=== PATIENT | female | born 1945 | race Caucasian/White ===

== ENCOUNTER → 2017-01-08 | Outpatient (CLI) | payer MEDICARE, OTHER ==
[~2017-01-08] MED LIST: ACCUPRIL20 MG PO; ACCUPRIL5 MG PO; ASPIR-LOW81 MG PO; ATORVASTATIN CA40 MG PO; BIOTIN1000 MICRO PO; CELEXA20 MG PO; CELEXA40 MG PO; COMBIGAN O20 DROP/5 BOTH EYES; HYDROCHLOROTH12.5 M1 PO; HYDROCHLOROTH12.5 M3 PO; LATANOPROST2.5 ML LEFT EYE; LEXAPRO20 MG PO; NIFEDICAL XL30 MG PO; PERCOCET 5/31 TABLET PO; POTASSIUM-9999 MG PO; PREDNISONE50 MG PO; PROAIR HFA8.5 GM IH; SIMVASTATIN80 M1 PO; SUPER CALCIUM600 MG PO; TIZANIDINE HCL4 M1 PO; VITAMIN E400 UNIT PO; XALATAN2.5 ML BOTH EYES; XANAX0.5 MG PO; ZITHROMAX Z-PA250 MG PO
== END | disposition home or self-care (01) ==
LOC: CDC 13:57
DX: Z95.0 Presence of cardiac pacemaker (principal); R00.8 Other abnormalities of heart beat; R94.31 Abnormal electrocardiogram [ECG] [EKG]; H25.12 Age-related nuclear cataract, left eye
CPT/HCPCS: 93000

== ENCOUNTER 2017-11-04 08:44 | Inpatient (IN) | payer OTHER ==
[~2017-11-04] VITALS: Ht 160 cm; Wt 68.0 kg
[~2017-11-04 08:44] MED LIST changes: +B-COMPLEX-VITA1 EACH PO; +PROCARDIA XL30 MG PO; +TYLENOL EXTRA500 MG PO
[2017-12-09 06:20] VITALS: BP 158/70
[2017-12-09 12:44] VITALS: BP 135/63
[2017-12-09 15:50] VITALS: BP 127/61
[2017-12-09 20:22] VITALS: BP 160/70
[2017-12-10] VITALS: BP 140/66
[2017-12-10 03:54] VITALS: BP 135/60
[2017-12-10 05:59] LABS: BASOPHIL (%) 0.1 % (0-1); EOSINOPHIL (%) 0 % (0-5); HEMATOCRIT 31.5 % (36.0-46.0); HEMOGLOBIN 10.3 G/DL (11.9-15.5); IMMATURE GRANULOCYTE (%) 0.4 % (0.0-0.7); LYMPHOCYTE (%) 9.1 % (15-42); LYMPHOCYTE COUNT 1.3 K/uL (1.0-2.8); MCH 32.8 PG (29.0-34.0); MCHC 32.7 G/DL (30.0-36.0); MCV 100.3 FL (83-99); MONOCYTE (%) 10.6 % (3-12); MONOCYTE COUNT 1.5 K/uL (0-0.8); NEUTROPHIL (%) 79.8 % (45-76); NEUTROPHIL COUNT 11.3 K/uL (1.8-6.4); PLATELET COUNT 189 K/uL (156-360); RBC DIS.WIDTH-SD 46.7 % (39-53); RED BLOOD COUNT 3.14 M/uL (3.80-5.20); WHITE BLOOD COUNT 14.1 K/uL (4.1-10.2)
[2017-12-10 06:23] LABS: CHLORIDE 97 MEQ/L (99-109); CREATININE 0.9 MG/DL (0.6-1.3); GFR ESTIMATE (CALCULATED) > 59 mL/min/; GLUCOSE 96 mg/dL (70-99); POTASSIUM 5.2 MEQ/L (3.7-5.4); SODIUM 129 MEQ/L (136-147); UREA NITROGEN (BUN) 17 mg/dL (9-23)
[2017-12-10 07:56] VITALS: BP 160/68
[2017-12-10 16:38] VITALS: BP 122/80
[2017-12-10 19:59] VITALS: BP 138/69
[2017-12-11] VITALS: BP 136/62
[2017-12-11 03:47] VITALS: BP 117/58
[2017-12-11 07:14] VITALS: BP 155/70
[2017-12-11 07:22] LABS: BASOPHIL (%) 0.6 % (0-1); BASOPHIL COUNT 0.1 K/uL (0-0.1); EOSINOPHIL (%) 3.4 % (0-5); EOSINOPHIL COUNT 0.3 K/uL (0-0.3); HEMOGLOBIN 10.1 G/DL (11.9-15.5); IMMATURE GRANULOCYTE (%) 0.4 % (0.0-0.7); LYMPHOCYTE (%) 14.5 % (15-42); LYMPHOCYTE COUNT 1.5 K/uL (1.0-2.8); MCH 32.6 PG (29.0-34.0); MCHC 32.6 G/DL (30.0-36.0); MONOCYTE (%) 12.3 % (3-12); MONOCYTE COUNT 1.2 K/uL (0-0.8); NEUTROPHIL (%) 68.8 % (45-76); PLATELET COUNT 177 K/uL (156-360); RBC DIS.WIDTH-CV 13.1 % (11.8-14.6); RBC DIS.WIDTH-SD 46.7 % (39-53); WHITE BLOOD COUNT 10.1 K/uL (4.1-10.2)
[2017-12-11 07:44] LABS: CHLORIDE 101 MEQ/L (99-109); CREATININE 0.9 MG/DL (0.6-1.3); GFR ESTIMATE (CALCULATED) > 59 mL/min/; GLUCOSE 86 mg/dL (70-99); POTASSIUM 4.6 MEQ/L (3.7-5.4); SODIUM 133 MEQ/L (136-147); UREA NITROGEN (BUN) 16 mg/dL (9-23)
[2017-12-11 11:30] VITALS: BP 128/60
== END 2017-12-11 12:57 | disposition home or self-care (01) | DRG 742 ==
LOC: 2SOUTH → EDSTATUS 14:49 → SDC 15:26 → ENRESERV 12-08 22:06 → 2EAST 12-09 05:30 → 2SOUTH 12-09 05:30 → ENRESERV 12-09 11:00 → 2EAST 12-09 13:10 → CANRESERV 12-09 13:31 → ENRESERV 12-09 13:31 → 2SOUTH 12-09 15:54 → 2EAST 12-11 12:57
PROVIDERS: Obstetrics & Gynecology Gynecology
DX: N81.4 Uterovaginal prolapse, unspecified (principal); N81.12 Cystocele, lateral; N95.2 Postmenopausal atrophic vaginitis; E87.1 Hypo-osmolality and hyponatremia; I10 Essential (primary) hypertension; Z95.0 Presence of cardiac pacemaker; Z87.891 Personal history of nicotine dependence
CPT/HCPCS: 80048; 85025; 87086; 88307; C1781; J0131; J0330; J0690; J1100; J1170; J1650; J1885; J1940; J2001; J2405; J2710; J2765; J2795; J3475; J7120